=== PATIENT | female | born 1935 | race Caucasian/White ===

== ENCOUNTER → 2018-08-04 | Outpatient (CLI) | payer MEDICARE ==
[~2018-08-04] MED LIST: ASCO100019 PO; CALC1CAP8 PO; CHOL500045 PO; LACT1CAP35 PO; MAGN500T PO; TIMO5DRO5 RIGHTEYE; VITA1TAB19 PO
[2018-08-04 11:21] LABS: BASOPHILS # (AUTO) 0.03 x10^3/uL (0-0.1); BASOPHILS % (AUTO) 0 % (0-1); EOSINOPHILS # (AUTO) 0.25 x10^3/uL (0-0.4); EOSINOPHILS % (AUTO) 3 % (1-7); LYMPHOCYTES # (AUTO) 2.03 x10^3/uL (1-3.4); LYMPHOCYTES % (AUTO) 25 % (22-44); MD NO; MEAN CORPUSCULAR HEMOGLOBIN 31.6 pg (27.0-34.8); MEAN CORPUSCULAR HGB CONC 34.4 g/dL (32.4-35.8); MEAN CORPUSCULAR VOLUME 91.6 fL (80-100); MEAN PLATELET VOLUME 7.1 fL (7.4-10.4); MONOCYTES # (AUTO) 0.48 x10^3/uL (0.2-0.8); MONOCYTES % (AUTO) 6 % (2-9); NEUTROPHILS # (AUTO) 5.24 x10^3/uL (1.8-6.8); NEUTROPHILS % (AUTO) 65 % (42-75); PLATELET COUNT 315 x10^3/uL (130-400); RED BLOOD COUNT 5.17 x10^6/uL (3.82-5.3); RED CELL DISTRIBUTION WIDTH 13.4 % (9.6-15.2)
[2018-08-04 11:31] LABS: CHLORIDE 111 mmol/L (98-107)
[2018-08-04 12:07] LABS: ALANINE AMINOTRANSFERASE 33 U/L (12-78); ALBUMIN 4.3 g/dL (3.4-5.0); ALKALINE PHOSPHATASE 95 U/L (45-117); ANION GAP 7 mmol/L (5-15); BILIRUBIN,TOTAL 1.3 mg/dL (0.2-1.0); CALCIUM 9.9 mg/dL (8.5-10.1); CREATININE 0.99 mg/dL (0.55-1.02); TOTAL PROTEIN 7.7 g/dL (6.4-8.2)
== END | disposition home or self-care (01) ==
LOC: STAR 10:11
PROVIDERS: ATTEND Obstetrics & Gynecology
DX: Z01.818 Encounter for other preprocedural examination (principal); D25.9 Leiomyoma of uterus, unspecified
CPT/HCPCS: 36415; 80053; 85025; 93005

== ENCOUNTER 2018-08-10 10:15 | Inpatient (IN) | payer MEDICARE ==
[2018-08-04 10:54] VITALS: BP 128/78
[~2018-08-10] VITALS: Ht 162.6 cm; Wt 60.0 kg
[2018-08-10] MEDS ORDERED: LACTATED RINGERS 1,000 ML IV SCH (11:18)
[2018-08-10] MEDS ORDERED: PROPOFOL 50 ML ONE (12:30)
[2018-08-10] MEDS ORDERED: FENTANYL PF 250 MCG/5ML ONE (12:30)
[2018-08-10] MEDS ORDERED: MIDAZOLAM 1 MG/ML, 2ML ONE (12:37)
[2018-08-10] MEDS ORDERED: OXYcodone 5 MG/5 ML ORAL.SOL UDC PO PRN (13:30)
[2018-08-10] MEDS ORDERED: ACETAMINOPHEN 325 MG TABLET PO PRN (13:30)
[2018-08-10] MEDS ORDERED: EPHEDRINE 50 MG/ML, 1ML IM PRN (13:30)
[2018-08-10] MEDS ORDERED: hydrALAzine 20 MG/ML, 1ML IV PRN (13:30)
[2018-08-10] MEDS ORDERED: EPHEDRINE 50 MG/ML, 1ML IVPush PRN (13:30)
[2018-08-10] MEDS ORDERED: METOPROLOL 1 MG/ML, 5ML IV PRN (13:30)
[2018-08-10] MEDS ORDERED: DIAZEPAM 5 MG/ML, 2ML IVPush PRN (13:30)
[2018-08-10] MEDS ORDERED: ONDANSETRON 2MG/ML, 2ML IV PRN ×2 (13:30→16:30)
[2018-08-10] MEDS ORDERED: DIPHENHYDRAMINE 50 MG/ML, 1ML IVPush PRN (13:30)
[2018-08-10] MEDS ORDERED: ONDANSETRON ODT 8 MG PO PRN (13:30)
[2018-08-10] MEDS ORDERED: MIDAZOLAM 1 MG/ML, 2ML IV PRN (13:30)
[2018-08-10] MEDS ORDERED: MORPHINE SULFATE 4 MG/ML, 1ML ONE (14:33)
[2018-08-10] MEDS ORDERED: OXYcodone 5 MG/5 ML ORAL.SOL UDC ONE (14:33)
[2018-08-10] MEDS: FENTANYL PF 100 MCG/2ML IV PRN ×2 (14:34→14:56)
[2018-08-10] MEDS: MORPHINE SULFATE 4 MG/ML, 1ML IVPush PRN ×2 (14:43→14:51)
[2018-08-10] MEDS ORDERED: FENTANYL PF 100 MCG/2ML ONE (14:44)
[2018-08-10] MEDS ORDERED: MEPERIDINE/PF 25MG/ML,1ML ONE (14:57)
[2018-08-10] MEDS ORDERED: MEPERIDINE/PF 25MG/0.5ML IVPush PRN (15:00)
[2018-08-10] MEDS ORDERED: ROCURONIUM 10MG/ML,5ML ONE (15:21)
[2018-08-10] MEDS ORDERED: PROPOFOL 10 MG/ML, 20ML ONE (15:21)
[2018-08-10] MEDS ORDERED: CEFAZOLIN 1,000 MG ONE (15:21)
[2018-08-10] MEDS ORDERED: SUCCINYLCHOLINE 20 MG/ML, 10ML ONE (15:21)
[2018-08-10] MEDS ORDERED: IBUPROFEN 600 MG TABLET PO PRN (16:30)
[2018-08-10] MEDS ORDERED: morphine SULFATE 10 MG/ML, 1ML IV PRN (16:30)
[2018-08-10] MEDS: LACTATED RINGERS 1,000 ML IV SCH (18:21)
[2018-08-10] MEDS: OXYcodone/APAP 5/325MG TABLET PO PRN (19:14)
[2018-08-10 20:42] VITALS: BP 109/48
[2018-08-10] MEDS: TIMOLOL OPHTH 0.5%, 5ML RIGHTEYE SCH (21:00)
[2018-08-11 00:01] VITALS: BP 97/59
[2018-08-11] MEDS: OXYcodone/APAP 5/325MG TABLET PO PRN ×2 (00:43→07:18)
[2018-08-11] MEDS: LACTATED RINGERS 1,000 ML IV SCH ×2 (01:00→09:00)
[2018-08-11 04:04] VITALS: BP 85/45
[2018-08-11 06:39] VITALS: BP 93/52
[2018-08-11] MEDS: TIMOLOL OPHTH 0.5%, 5ML RIGHTEYE SCH (08:07)
[2018-08-11] MEDS ORDERED: OXYC-302 PO (08:24)
[2018-08-11] MEDS ORDERED: IBUP200T49 PO (08:24)
[2018-08-11] MEDS ORDERED: DOCU-131 PO (08:25)
[2018-08-11] MEDS ORDERED: CHOLECALCIFEROL 400 UNITS TABLET PO SCH (09:00)
[2018-08-11] MEDS ORDERED: CHOLECALCIFEROL 1,000 UNIT TABLET PO SCH (09:00)
[2018-08-11] MEDS ORDERED: MAGNESIUM OXIDE 400 MG TABLET PO SCH (09:00)
[2018-08-11] MEDS ORDERED: MULTIVITS,STRESS FORMULA 1 TABLET PO SCH (09:00)
[2018-08-11] MEDS ORDERED: ASCORBIC ACID 500 MG TABLET PO SCH (09:00)
[2018-08-11] MEDS ORDERED: CALCIUM CARBONATE 500 MG TABLET PO SCH (09:00)
[2018-08-11] MEDS ORDERED: LACTOBACILLUS CHEW TABLET PO SCH (09:00)
== END 2018-08-11 13:13 | disposition home or self-care (01) | DRG 743 ==
LOC: ORIP 10:46 → EDSTATUS 12:30 → 4NOR 15:44 → DCLOUNGE 08-11 12:56
PROVIDERS: ADMIT Obstetrics & Gynecology; ATTEND Obstetrics & Gynecology
PROC: 0UT20ZZ Resection of Bilateral Ovaries, Open Approach (ICD-10-PCS; 2018-08-10)
PROC: 0UT70ZZ Resection of Bilateral Fallopian Tubes, Open Approach (ICD-10-PCS; 2018-08-10)
PROC: 0UT90ZZ Resection of Uterus, Open Approach (ICD-10-PCS; principal; 2018-08-10 12:30)
DX: D25.9 Leiomyoma of uterus, unspecified (principal); Z88.0 Allergy status to penicillin; Z87.891 Personal history of nicotine dependence; Z80.1 Family history of malignant neoplasm of trachea, bronchus and lung
CPT/HCPCS: 36415; 86850; 86900; 88307; G0378; J0171; J0690; J2175; J2250; J2704; J3010; J3490; J0330; J2270; J7120

== ENCOUNTER 2019-03-06 13:30 | Outpatient (CLI) | payer MEDICARE ==
[~2019-03-06 13:30] MED LIST changes: +DOCU-131 PO; +IBUP200T49 PO; +OXYC-302 PO
[2019-03-06] MEDS ORDERED: MULT1TAB60 PO (13:56)
== END 2019-03-06 23:59 | disposition home or self-care (01) ==
LOC: STAR 13:30
PROVIDERS: ATTEND Surgery
DX: Z02.9 Encounter for administrative examinations, unspecified (principal)

== ENCOUNTER 2019-03-13 10:29 | Day surgery (SDC) | payer MEDICARE ==
[~2019-03-13] VITALS: Ht 162.6 cm; Wt 58.6 kg
[~2019-03-13 10:29] MED LIST changes: +MULT1TAB60 PO
[2019-03-13] MEDS ORDERED: LACTATED RINGERS 1,000 ML IV SCH (12:09)
[2019-03-13 12:17] VITALS: BP 145/74
[2019-03-13] MEDS ORDERED: BUPIVACAINE/PF 0.5% ONE (13:48)
[2019-03-13] MEDS ORDERED: BUPIVACAINE/PF 0.25% ONE (13:48)
[2019-03-13] MEDS ORDERED: ISOSULFAN BLUE 10 MG/ML, 5ML IV ONE (13:49)
[2019-03-13] MEDS ORDERED: EPINEPHRINE 1 MG/ML, 1ML ONE (13:49)
[2019-03-13] MEDS ORDERED: FENTANYL PF 100 MCG/2ML ONE ×2 (14:06→15:21)
[2019-03-13] MEDS ORDERED: PROPOFOL 10 MG/ML, 20ML ONE (14:07)
[2019-03-13] MEDS ORDERED: LIDOCAINE-MPF 2% ,5ML ONE (14:10)
[2019-03-13] MEDS ORDERED: CEFAZOLIN 1,000 MG ONE (14:10)
[2019-03-13] MEDS ORDERED: SODIUM CHLORIDE 0.9% PF 10ML ONE (14:10)
[2019-03-13] MEDS ORDERED: SUCCINYLCHOLINE 20 MG/ML, 10ML ONE (14:10)
[2019-03-13] MEDS ORDERED: ONDANSETRON 2MG/ML, 2ML ONE (14:41)
[2019-03-13] MEDS ORDERED: DEXAMETHASONE 4 MG/ML, 1ML ONE (14:41)
[2019-03-13] MEDS ORDERED: KETOROLAC 30 MG/1 ML ONE (14:48)
[2019-03-13] MEDS ORDERED: LIDOCAINE 1%-EPI 1:100K, 20ML ONE (14:55)
[2019-03-13] MEDS ORDERED: SODIUM BICARBONATE 4.2%, 5ML ONE (14:55)
[2019-03-13] MEDS ORDERED: LIDOCAINE 1%, 20ML ONE (14:55)
[2019-03-13] MEDS ORDERED: MEPERIDINE/PF 25MG/ML,1ML IVPush PRN (15:00)
[2019-03-13] MEDS ORDERED: PROMETHAZINE 25 MG/ML, 1ML IV PRN (15:00)
[2019-03-13] MEDS ORDERED: LABETALOL 5MG/ML, 20ML IV PRN (15:00)
[2019-03-13] MEDS ORDERED: HYDROcodone/APAP 7.5-325MG/15ML UDC PO PRN (15:00)
[2019-03-13] MEDS ORDERED: ACETAMINOPHEN 325 MG TABLET PO PRN (15:00)
[2019-03-13] MEDS ORDERED: ONDANSETRON 2MG/ML, 2ML IV PRN (15:00)
[2019-03-13] MEDS ORDERED: EPHEDRINE 50 MG/ML, 1ML IVPush PRN (15:00)
[2019-03-13] MEDS ORDERED: FENTANYL PF 100 MCG/2ML IV PRN (15:00)
[2019-03-13] MEDS ORDERED: HYDROmorphone 2 MG/ML, 1ML IVPush PRN (15:00)
[2019-03-13] MEDS ORDERED: hydrALAzine 20 MG/ML, 1ML IV PRN (15:00)
[2019-03-13] MEDS ORDERED: EPHEDRINE 50 MG/ML, 1ML ONE ×2 (15:15)
== END 2019-03-13 17:30 | disposition home or self-care (01) ==
LOC: SDC 10:29 → EDSTATUS 15:00 → SDC 17:30
PROVIDERS: ATTEND Surgery
DX: C50.512 Malignant neoplasm of lower-outer quadrant of left female breast (principal); H40.9 Unspecified glaucoma; Z17.0 Estrogen receptor positive status [ER+]; Z79.899 Other long term (current) drug therapy; Z90.710 Acquired absence of both cervix and uterus; Z87.891 Personal history of nicotine dependence; Z98.49 Cataract extraction status, unspecified eye; Z96.641 Presence of right artificial hip joint; Z98.890 Other specified postprocedural states; Z80.1 Family history of malignant neoplasm of trachea, bronchus and lung
CPT/HCPCS: 19297; 19301; 38525; 38792; 76098; 88307; 88341; 88342; 88360; 93005; A9541; C1728; J0171; J0330; J0690; J1100; J1885; J2405; J2704; J3010; J3490; J7120; 19281

== ENCOUNTER 2019-03-23 06:59 | Day surgery (SDC) | payer MEDICARE ==
[~2019-03-23] VITALS: Ht 162.6 cm; Wt 58.8 kg
[2019-03-23] MEDS ORDERED: LACTATED RINGERS 1,000 ML IV SCH (07:36)
[2019-03-23] MEDS ORDERED: CEPH-367 PO (07:38)
[2019-03-23 07:58] VITALS: BP 151/66
[2019-03-23] MEDS ORDERED: FENTANYL PF 100 MCG/2ML ONE ×3 (07:59→11:04)
[2019-03-23] MEDS ORDERED: EPINEPHRINE 1 MG/ML, 1ML ONE (08:29)
[2019-03-23] MEDS ORDERED: BUPIVACAINE/PF 0.5% ONE (08:29)
[2019-03-23] MEDS ORDERED: SUCCINYLCHOLINE 20 MG/ML, 10ML ONE (08:39)
[2019-03-23] MEDS ORDERED: GLYCOPYRROLATE 0.2MG/1ML, 5ML ONE (08:39)
[2019-03-23] MEDS ORDERED: CEFAZOLIN 1,000 MG ONE (08:39)
[2019-03-23] MEDS ORDERED: ONDANSETRON 2MG/ML, 2ML ONE (08:39)
[2019-03-23] MEDS ORDERED: DEXAMETHASONE 4 MG/ML, 1ML ONE (08:39)
[2019-03-23] MEDS ORDERED: PROPOFOL 10 MG/ML, 20ML ONE (08:39)
[2019-03-23] MEDS ORDERED: NEOSTIGMINE 1 MG/ML, 10ML ONE (08:39)
[2019-03-23] MEDS ORDERED: ROCURONIUM 10MG/ML,5ML ONE (08:39)
[2019-03-23] MEDS ORDERED: ONDANSETRON 2MG/ML, 2ML IV PRN (10:00)
[2019-03-23] MEDS ORDERED: PROMETHAZINE 25 MG SUPP PR PRN (10:00)
[2019-03-23] MEDS ORDERED: ACETAMINOPHEN 325 MG TABLET PO PRN (10:00)
[2019-03-23] MEDS ORDERED: OXYcodone 5 MG/5 ML ORAL.SOL UDC PO PRN (10:00)
[2019-03-23] MEDS ORDERED: HYDROmorphone 2 MG/ML, 1ML IVPush PRN (10:00)
[2019-03-23] MEDS ORDERED: ONDANSETRON ODT 8 MG PO PRN (10:00)
[2019-03-23] MEDS ORDERED: NEOSPORIN OINT. PKT 1 PACKET ONE (10:02)
[2019-03-23] MEDS ORDERED: ACETAMINOPHEN 650 MG/20.3 ML UDC ONE (10:30)
[2019-03-23] MEDS ORDERED: OXYcodone 5 MG/5 ML ORAL.SOL UDC ONE (10:30)
[2019-03-23] MEDS: FENTANYL PF 100 MCG/2ML IV PRN ×6 (10:31→11:10)
== END 2019-03-23 12:20 | disposition home or self-care (01) ==
LOC: OUT 06:59
PROVIDERS: ATTEND Surgery
DX: C50.512 Malignant neoplasm of lower-outer quadrant of left female breast (principal); H40.9 Unspecified glaucoma; Z87.891 Personal history of nicotine dependence; Z96.649 Presence of unspecified artificial hip joint; Z98.890 Other specified postprocedural states; Z80.1 Family history of malignant neoplasm of trachea, bronchus and lung
CPT/HCPCS: 19301; 88307; C1728; J0171; J0330; J0690; J1100; J2405; J2704; J2710; J3010; J7120

== ENCOUNTER 2019-04-19 13:00 | Day surgery (SDC) | payer MEDICARE ==
[~2019-04-19] VITALS: Ht 162.6 cm; Wt 59.3 kg
[~2019-04-19 13:00] MED LIST changes: +CEPH-367 PO
[2019-04-19 13:37] VITALS: BP 135/72
[2019-04-19] MEDS ORDERED: BUPIVACAINE/PF 0.5% ONE (14:32)
[2019-04-19] MEDS ORDERED: EPINEPHRINE 1 MG/ML, 1ML ONE (14:33)
[2019-04-19] MEDS ORDERED: FENTANYL PF 100 MCG/2ML ONE ×2 (15:16→16:33)
[2019-04-19] MEDS ORDERED: CEFAZOLIN 1,000 MG ONE (15:17)
[2019-04-19] MEDS ORDERED: PROPOFOL 10 MG/ML, 20ML ONE (15:17)
[2019-04-19] MEDS ORDERED: DEXAMETHASONE 4 MG/ML, 1ML ONE (15:17)
[2019-04-19] MEDS ORDERED: ONDANSETRON 2MG/ML, 2ML ONE (15:17)
[2019-04-19] MEDS ORDERED: SUCCINYLCHOLINE 20 MG/ML, 10ML ONE (15:17)
[2019-04-19] MEDS ORDERED: KETOROLAC 30 MG/1 ML ONE (15:28)
[2019-04-19] MEDS ORDERED: LIDOCAINE-MPF 2% ,5ML ONE (15:28)
[2019-04-19] MEDS ORDERED: NEOSPORIN OINT, 15GM ONE (15:59)
[2019-04-19] MEDS ORDERED: ACETAMINOPHEN 650 MG/20.3 ML UDC ONE (16:17)
[2019-04-19] MEDS ORDERED: OXYcodone 5 MG/5 ML ORAL.SOL UDC ONE (16:17)
[2019-04-19] MEDS ORDERED: MEPERIDINE/PF 25MG/ML,1ML IVPush PRN (16:30)
[2019-04-19] MEDS ORDERED: LABETALOL 5MG/ML, 20ML IV PRN (16:30)
[2019-04-19] MEDS ORDERED: HYDROmorphone 2 MG/ML, 1ML IVPush PRN (16:30)
[2019-04-19] MEDS ORDERED: hydrALAzine 20 MG/ML, 1ML IV PRN (16:30)
[2019-04-19] MEDS ORDERED: OXYcodone 5 MG/5 ML ORAL.SOL UDC PO PRN (16:30)
[2019-04-19] MEDS ORDERED: ONDANSETRON 2MG/ML, 2ML IV PRN (16:30)
[2019-04-19] MEDS ORDERED: ACETAMINOPHEN 325 MG TABLET PO PRN (16:30)
[2019-04-19] MEDS: FENTANYL PF 100 MCG/2ML IV PRN ×3 (16:35→16:50)
[2019-04-19] MEDS ORDERED: MORPHINE SULFATE 4 MG/ML, 1ML IVPush PRN (18:30)
[2019-04-19] MEDS ORDERED: LACTATED RINGERS 1,000 ML IV SCH (18:30)
[2019-04-19] MEDS ORDERED: OXYcodone/APAP 5/325MG TABLET PO PRN (18:30)
[2019-04-19] MEDS ORDERED: ONDANSETRON 2MG/ML, 2ML IVPush PRN (18:30)
[2019-04-19 19:16] VITALS: BP 150/76
== END 2019-04-19 19:55 | disposition home or self-care (01) ==
LOC: OUT 13:00 → 4NE 17:30 → OUT 19:01 → UNDOADMOB 19:02 → 4NE 19:02 → UNDODISOB 19:55
PROVIDERS: ATTEND Surgery
DX: C50.512 Malignant neoplasm of lower-outer quadrant of left female breast (principal)
CPT/HCPCS: 19297; 19301; 88307; C1728; J0171; J0330; J0690; J1100; J1885; J2405; J2704; J3010; G0378

== ENCOUNTER → 2020-03-21 | Outpatient (CLI) | payer MEDICARE ==
[~2020-03-21] MED LIST changes: +LIDOCAINE 1%, 10ML ONE; +MULT-449 PO; -MULT1TAB60 PO
== END | disposition home or self-care (01) ==
LOC: RAD 09:11
PROVIDERS: ATTEND Radiology Radiation Oncology
DX: R59.1 Generalized enlarged lymph nodes (principal); Z85.3 Personal history of malignant neoplasm of breast
CPT/HCPCS: 10005; 88173; 88305

== ENCOUNTER → 2020-04-16 | Outpatient (CLI) | payer MEDICARE ==
[~2020-04-16] MED LIST changes: -LIDOCAINE 1%, 10ML ONE; +ZINC50TA44 PO
== END | disposition home or self-care (01) ==
LOC: STAR 14:35
PROVIDERS: ATTEND Surgery
DX: Z01.818 Encounter for other preprocedural examination (principal); R59.1 Generalized enlarged lymph nodes; Z85.3 Personal history of malignant neoplasm of breast; Z20.828 Contact with and (suspected) exposure to other viral communicable diseases
CPT/HCPCS: 87635; 93005

== ENCOUNTER 2020-04-22 10:28 | Day surgery (SDC) | payer MEDICARE ==
[~2020-04-22] VITALS: Ht 162.6 cm; Wt 59.0 kg
[~2020-04-22 10:28] MED LIST changes: +BUPIVACAINE/PF 0.5% ONE; +EPINEPHRINE 1 MG/ML, 1ML ONE; -OXYC-302 PO; +OXYC1TAB14 PO
[2020-04-22 11:07] VITALS: BP 155/77
[2020-04-22] MEDS ORDERED: LACTATED RINGERS 1,000 ML IV SCH (11:30)
[2020-04-22] MEDS ORDERED: CHLORHEXIDINE 15 ML UDC MM ONE (11:30)
[2020-04-22] MEDS ORDERED: FENTANYL PF 100 MCG/2ML ONE ×2 (12:27→13:38)
[2020-04-22] MEDS ORDERED: SUCCINYLCHOLINE 20 MG/ML, 10ML ONE (12:48)
[2020-04-22] MEDS ORDERED: KETOROLAC 30 MG/1 ML ONE (12:48)
[2020-04-22] MEDS ORDERED: DEXAMETHASONE 4 MG/ML, 1ML ONE (12:48)
[2020-04-22] MEDS ORDERED: MIDAZOLAM 1 MG/ML, 2ML IV PRN (13:00)
[2020-04-22] MEDS ORDERED: ACETAMINOPHEN 325 MG TABLET PO PRN (13:00)
[2020-04-22] MEDS ORDERED: MEPERIDINE/PF 25MG/0.5ML IVPush PRN (13:00)
[2020-04-22] MEDS ORDERED: FENTANYL PF 100 MCG/2ML IV PRN (13:00)
[2020-04-22] MEDS ORDERED: OXYcodone 5 MG/5 ML ORAL.SOL UDC PO PRN (13:00)
[2020-04-22] MEDS ORDERED: HYDROmorphone 1 MG/ML, 1ML INJ IVPush PRN (13:00)
[2020-04-22] MEDS ORDERED: PROMETHAZINE 25 MG/ML, 1ML IVPush PRN (13:00)
[2020-04-22] MEDS ORDERED: PROPOFOL 10 MG/ML, 20ML ONE (13:54)
[2020-04-22] MEDS ORDERED: ONDANSETRON 2MG/ML, 2ML ONE (13:54)
[2020-04-22] MEDS ORDERED: CEFAZOLIN 1,000 MG ONE (13:54)
[2020-04-22] MEDS ORDERED: OXYC5TAB2 PO ×2 (15:21→15:32)
[2020-04-22] MEDS ORDERED: OXYC5SOL8 PO (15:45)
== END 2020-04-22 16:15 | disposition home or self-care (01) ==
LOC: OUT 10:28
PROVIDERS: ATTEND Surgery
DX: R59.0 Localized enlarged lymph nodes (principal); C77.3 Secondary and unspecified malignant neoplasm of axilla and upper limb lymph nodes; C50.512 Malignant neoplasm of lower-outer quadrant of left female breast; M19.90 Unspecified osteoarthritis, unspecified site; Z17.0 Estrogen receptor positive status [ER+]; Z79.899 Other long term (current) drug therapy; Z87.891 Personal history of nicotine dependence; Z90.11 Acquired absence of right breast and nipple; Z92.3 Personal history of irradiation; Z98.890 Other specified postprocedural states; Z80.1 Family history of malignant neoplasm of trachea, bronchus and lung
CPT/HCPCS: 38525; 88305; 88341; 88342; 88360; 88361; 88377; C1760; J0171; J0330; J0690; J1100; J1885; J2405; J2704; J3010; J7120

== ENCOUNTER → 2020-08-28 | Outpatient (CLI) | payer MEDICARE ==
[~2020-08-28] MED LIST changes: -BUPIVACAINE/PF 0.5% ONE; -EPINEPHRINE 1 MG/ML, 1ML ONE; +OXYC5SOL8 PO; +OXYC5TAB2 PO
== END | disposition home or self-care (01) ==
LOC: ROC 07:56
PROVIDERS: ATTEND Radiology Radiation Oncology
DX: C50.512 Malignant neoplasm of lower-outer quadrant of left female breast (principal)
CPT/HCPCS: G0463

== ENCOUNTER → 2020-11-18 | Outpatient (CLI) | payer MEDICARE | END | disposition home or self-care (01) | LOC: ROC 11:44 | PROVIDERS: ATTEND Radiology Radiation Oncology | DX: Z08 Encounter for follow-up examination after completed treatment for malignant neoplasm (principal); Z85.3 Personal history of malignant neoplasm of breast | CPT/HCPCS: 99213; G0463 ==